=== PATIENT | male | born 1975 | race Caucasian/White ===

== ENCOUNTER → 2017-10-15 | Outpatient (CLI) | payer BC ==
[~2017-10-15] MED LIST: ATV/1 PO; ATV5 PO; CITA10TA4 PO; CLX20 PO
--- NOTE | 2017-10-15 21:06 | DIAGNOSTIC IMAGING REPORT ---
LUMBAR SPINE W/O CONTRAST HISTORY: Pain. Neuropathy. LUMBOSACRAL RADICULOPATHY S1 TECHNIQUE: Multiplanar multisequence MRI of the lumbar spine was performed without the use of contrast. COMPARISON: None. FINDINGS: For the purpose of the report the L5-S1 disc space will be located on axial image 28 of 30. Normal signal characteristics of the vertebral bodies. Mild disc desiccation of the intervertebral discs from L3 through L5. L1-L2: No significant central canal or neural foraminal narrowing. L2-L3: No significant central canal or neural foraminal narrowing. L3-L4: Mild central disc bulge. Minimal impact upon the anterior thecal sac. L4-L5: Minimal broad-based disc bulge. Minimal impact upon the left anterior thecal sac.. Small extruded disc fragment located posterior to the left lateral aspect of the L5 vertebral body. This case minimal impact upon the anterior thecal sac. L5-S1: Mild left central disc herniation. Mild impact anterior thecal sac and S1 nerve roots bilaterally. Moderate narrowing of the right as well as left neural foramina. IMPRESSION: 1. Moderate degenerative disc change from L3 through L5. 2. Mild left central disc herniation L5-S1 with minimal impact upon the anterior thecal sac and minimal contact with the S1 nerve roots bilaterally. 3. Moderate narrowing of the neuroforamina bilaterally at L5-S1. 4. Broad-based disc bulge L4-L5 with a small linear extruded disc fragment projecting posterior to the left posterior aspect of the L5 vertebral body. This creates minimal impact upon the left anterior aspect of the thecal sac The above report was generated using voice recognition software. It may contain grammatical, syntax or spelling errors. Electronically signed by: Samuel Mike M.D. 10/15/2017 9:05 PM Dictated Date/Time: 10/15/2017 9:00 PM
== END | disposition home or self-care (01) ==
LOC: C.MRI 19:33
PROVIDERS: ATTEND Family Medicine
DX: M54.17 Radiculopathy, lumbosacral region (principal); M51.36 Other intervertebral disc degeneration, lumbar region; M48.07 Spinal stenosis, lumbosacral region; M51.26 Other intervertebral disc displacement, lumbar region

== ENCOUNTER → 2017-10-19 | Day surgery (SDC) | payer BC ==
[2017-10-16 09:23] VITALS: Ht 180.3 cm; Wt 88.6 kg
[~2017-10-19] VITALS: Ht 180.3 cm; Wt 88.6 kg
[~2017-10-19] MED LIST changes: -ATV5 PO; -CLX20 PO; +IOPAMIDOL INJ 61% 15 ML VIAL ONE; +LIDOCAINE HCL 1% MPF 5 ML VIAL ONE; +SODIUM CHLORIDE 0.9% INJ 10 ML VIAL ONE
--- NOTE | 2017-10-19 14:34 | History & Physical Bridge - [place] ---
H&P Re-Evaluation Bridge Note: I have examined the patient, reviewed the History & Physical and in the interval since the performance of the History & Physical I have noted the following changes of clinical significance: No changes noted
[2017-10-19 14:50] VITALS: TEMP 37.3
--- NOTE | 2017-10-19 14:52 | [facility] Post Operative Brief Note ---
Immediate Operative Summary Operative Date Oct 19, 2017. Pre-Operative Diagnosis S1 Lumbar Radiculopathy Post-Operative Diagnosis same Procedure(s) Performed Lumbar Epidural Steroid Injection Surgeon Dr. Von Tay Saw Handle Assembler Surgeon(s) 0 Estimated Blood Loss 0 Findings Consistent with Post-Op Diagnosis Specimens none Drains None Anesthesia Type Local Complication(s) none Disposition Disposition:
--- NOTE | 2017-10-19 14:53 | Discharge Instructions ---
Discharge Instructions Date of Service Oct 19, 2017. Visit Reason for Visit: Radiculopathy, Lumbosacral Region Discharge Discharge Diagnosis / Problem: right leg pain Discharge Goals Goal(s): Decrease discomfort, Improve function Activity Recommendations Activity Limitations: resume your previous activity Anesthesia . Post Anesthesia Instructions: If you have had General Anesthesia or IV Sedation: * Do not drive today. * Resume driving when surgeon permits. * Do not make important decisions or sign legal documents today. * Call surgeon for: 1. Temperature elevations greater than 101 degrees F. 2. Uncontrollable pain. 3. Excessive bleeding. 4. Persistent nausea and vomiting. 5. Medication intolerance (nausea, vomiting or rash). * For nausea and vomiting use only clear liquids such as: tea, soda, bouillon until nausea subsides, then gradually increase diet as tolerated. * If you have any concerns or questions, call your surgeon's office. If physician is unavailable and it is an emergency, call 911 or go to the nearest emergency room. . Diet Recommendations Recommended Home Diet: resume previous diet Procedures Procedures Performed: Lumbar Epidural Steroid Injection Pending Studies Studies pending at discharge: no Medical Emergencies . Who to Call and When: Medical Emergencies: If at any time you feel your situation is an emergency, please call 911 immediately. . Non-Emergent Contact Non-Emergency issues call your: Specialist . . "Provider Documentation" section prepared by Geovani Tay. .
[2017-10-19 15:17] VITALS: BP 146/87; PULSE 104; O2SAT 98
--- NOTE | 2017-10-19 15:19 | OPERATIVE REPORT ---
DATE OF OPERATION: 10/19/2017 PREOPERATIVE DIAGNOSIS: L5-S1 herniated nucleus pulposus with a right S1 radiculopathy. POSTOPERATIVE DIAGNOSIS: Same. PROCEDURE: Right paramedian L5-S1 intralaminar epidural steroid injection under fluoroscopic guidance. INDICATIONS: The patient is a 42-year-old white male who has had a 3+ week history of pain that is debilitating in the back, radiating down the right leg. He has had a trial of prednisone and is on gabapentin and has gotten minimal to little relief with that. He presents today for an epidural injection after MRI confirmed a disk herniation impacting the S1 nerve root. PHYSICAL EXAMINATION: Pleasant male, needing to move about a lot. He has a positive straight leg raise. Dorsi and plantar flexion has intact sensation. Absent deep tendon reflexes at the Achilles on the right. CONSENT: Verbal and written consent was obtained from the patient. Risks and benefits were reviewed. Risks include, but are not limited to epidural abscess, epidural hematoma, allergic reaction, and dural puncture. The patient wishes to proceed. DESCRIPTION OF PROCEDURE: The patient was taken back to the special procedures room of the [facility], where he was maintained in a prone position. Backside was cleansed with Betadine x3 and a dry sterile dressing was applied. Fluoroscope was used to identify the L5-S1 intralaminar space. Overlying skin was anesthetized with 4 mL on the right side with lidocaine 1% with a 25-gauge 1-1/2 inch needle. A 22-gauge 3-1/2 inch Tuohy needle was then directed down towards the intralaminar space. It was advanced under lateral fluoroscopic guidance and loss of resistance was noted just a little deeper than 7 cm. Isovue-300 contrast 1 mL was injected in which demonstrated an epidural uptake pattern, which was confirmed on lateral view. He then underwent injection after negative aspiration of 40 mg of Depo-Medrol and 4 mL of preservative free sodium chloride. Injection reproduced a familiar transient radicular sensation down the right leg. DISPOSITION: 1. The patient was taken out into the discharge recovery area, where he will be discharged home once discharge criteria have been met. 2. Follow up in the [facility] office in 4 weeks' time. I attest to the content of the Intraoperative Record and any orders documented therein. Any exception s are noted below.
== END | disposition home or self-care (01) ==
LOC: X.SURG 13:51
PROVIDERS: ATTEND Physical Medicine & Rehabilitation
DX: M51.27 Other intervertebral disc displacement, lumbosacral region (principal)